=== PATIENT | female | born 1985 | race Caucasian/White ===

== ENCOUNTER 2019-12-15 21:39 | Observation (INO) | payer OTHER ==
[~2019-12-15] VITALS: Ht 154.9 cm; Wt 61.2 kg
[~2019-12-15 21:39] MED LIST: ATIVAN 0.50.5 MG/TAB; BCP; DILANTIN100 MG PO; DOSTINEX0.5 MG/TAB; LAMICTAL 25MG T25 MG PO; PROZAC 10MG10 MG
[2019-12-15 22:09] LABS: BASO % 0.4 % (0.0-2.0); EOS % 0.4 % (0-4.0); GRAN # 5.9 (1.4-6.5); GRAN % 78.5 % (42.2-75.2); HEMATOCRIT 39.9 % (37.0-47.0); HEMOGLOBIN 13.5 g/dl (12.5-16.0); LYMPH # 0.9 (1.2-3.4); LYMPH % 12.3 % (20.0-51.0); MEAN CELL VOLUME 91 fl (80.0-100.0); MEAN CORPUSCULAR HEMOGLOBIN 31 pg (27.0-31.0); MEAN CORPUSCULAR HGB CONC 34 g/dl (33.0-37.0); MEAN PLATELET VOLUME 9.5 fl (7.4-10.4); MONO # 0.6 (0.1-0.6); MONO % 7.9 % (1.7-9.3); PLATELET COUNT 287 K/mm3 (130-400); RED BLOOD COUNT 4.39 M/mm3 (4.10-5.30); REDCELL DISTRIBUTION WIDTH-CV 13.1 % (11.5-14.5)
[2019-12-15 22:12] LABS: ALBUMIN 4.7 gm/dL (3.5-5.0); BILIRUBIN,TOTAL 0.4 mg/dL (0.0-1.0); CALCIUM 9.3 mg/dL (8.4-10.2); CREATININE, serum 0.82 (0.52-1.25); POTASSIUM 4.5 mmol/L (3.4-5.0); TOTAL PROTEIN 7.9 gm/dL (6.4-8.2)
[2019-12-15 22:45] LABS: ACETAMINOPHEN < 10 ug/mL (10-30); SALICYLATE < 1.0 mg/dL
[2019-12-15 23:07] LABS: PHENYTOIN (DILANTIN) < 3.0 ug/mL (10.0-20.0)
[2019-12-16] VITALS (310 sets, daily range): BP systolic 93–105; BP diastolic 52–63; PULSE 57–89; TEMP 97.8–98.2; O2SAT 93–100
--- NOTE | 2019-12-16 00:03 | NUR ---
REPORT RECEIVED FROM TIANNA KOHLER.
[2019-12-16] MEDS ORDERED: LAMICTAL 25MG T25 MG PO (00:59)
[2019-12-16] MEDS ORDERED: TRILEPTAL 150M150 MG (00:59)
--- NOTE | 2019-12-16 01:16 | NUR ---
0020 - PT ARRIVED IN UNIT, ABLE TO TRANSFER SELF FROM STRETCHER TO BED WITH STANDBY ASSIST. PT ALERT AND ORIENTED X 4, A BIT DROWSY BUT RESPONDS TO QUESTIONS APPROPRIATELY AND CAN BE EASILY AWAKEN. PT ON ROOM AIR, VS WNL. PT ALSO COMPLAINS OF HEADACHE 11/04, TYLENOL WAS GIVEN PRIOR TO LEAVING ED. 0115 - ADMISSION ASSESSMENT DONE. MANJIT CORDERO NOTIFIED OF PT'S ARRIVAL AND COMPLAINS OF HEADACHE, NO NEW ORDERS GIVEN AT THIS TIME. SEIZURE PADS APPLLIED, PT RESTING COMFORTABLY IN BED. WILL CONTINUE MONITORING.
[2019-12-16 06:27] LABS: COLLECTION METHOD CLEAN CATCH
[2019-12-16 06:39] LABS: MUCOUS Present /lpf; PH 6 (5-8); SQUAMOUS EPITHELIAL 0-2 /hpf; URINE APPEARANCE Clear; URINE BACTERIA None Seen /hpf; URINE BILIRUBIN Negative (NEGATIVE); URINE BLOOD Negative (NEGATIVE); URINE COLOR Yellow; URINE GLUCOSE Negative (NEGATIVE); URINE KETONE Negative (NEGATIVE); URINE LEUKOCYTE ESTERASE Negative (NEGATIVE); URINE NITRATE Negative (NEGATIVE); URINE PROTEIN(semi-quant) Negative (NEGATIVE); URINE RBC 0-2 /hpf; URINE UROBILINOGEN Negative (NEGATIVE)
[2019-12-16 06:59] LABS: TRICYCLIC ANTIDEPRESS URINE NEGATIVE
--- NOTE | 2019-12-16 07:24 | NUR ---
Pt stating "I feel perfectly fine now. I need to see the doctor so that I can be discharged to go home and take care of my pets who are home without food or water. I have a cement truck driver that will pick me up and take me home"
[2019-12-16 07:28] LABS: BASO % 0.3 % (0.0-2.0); EOS # 0.1 (0.0-0.7); EOS % 1.1 % (0-4.0); GRAN % 67.8 % (42.2-75.2); LYMPH # 1.9 (1.2-3.4); LYMPH % 21.5 % (20.0-51.0); MEAN CELL VOLUME 92 fl (80.0-100.0); MEAN CORPUSCULAR HGB CONC 33 g/dl (33.0-37.0); MEAN PLATELET VOLUME 9.6 fl (7.4-10.4); MONO # 0.8 (0.1-0.6); PLATELET COUNT 220 K/mm3 (130-400); RED BLOOD COUNT 3.69 M/mm3 (4.10-5.30); REDCELL DISTRIBUTION WIDTH-CV 13.2 % (11.5-14.5)
[2019-12-16 07:32] LABS: HEMATOCRIT 34.1 % (37.0-47.0); HEMOGLOBIN 11.2 g/dl (12.5-16.0); MEAN CORPUSCULAR HEMOGLOBIN 30 pg (27.0-31.0)
[2019-12-16 07:45] LABS: CALCIUM 7.7 mg/dL (8.4-10.2); CREATININE, serum 0.8 (0.52-1.25); POTASSIUM 4.1 mmol/L (3.4-5.0)
--- NOTE | 2019-12-16 07:49 | NUR ---
MD Ronaldo in with pt
[2019-12-16 07:59] LABS: PROLACTIN 44.6 ng/mL (3.0-18.6)
--- NOTE | 2019-12-16 08:10 | NUR ---
Pt requesting EEG and MRI be scheduled as outpatient - MD Ronaldo OK with that
--- NOTE | 2019-12-16 08:38 | NUR ---
Patient requesting EEG to be completed as an outpatient.
== END 2019-12-16 10:00 | disposition home or self-care (01) ==
LOC: COL.ER 21:39 → IMCU 23:16
PROVIDERS: Emergency Medicine; Nurse Practitioner Family; ADMIT Internal Medicine
DX: G40.901 Epilepsy, unspecified, not intractable, with status epilepticus (principal); F10.10 Alcohol abuse, uncomplicated; F12.929 Cannabis use, unspecified with intoxication, unspecified; Z88.8 Allergy status to other drugs, medicaments and biological substances
CPT/HCPCS: G0378; J1953; J2060; J2405; J3411; J7030